=== PATIENT | female | born 1995 | race Caucasian/White ===

== ENCOUNTER 2022-10-21 19:29 | Emergency (ER) | payer OTHER, SELFPAY ==
--- NOTE | ~2022-10-21 | XR_ITS ---
EXAMINATION: XR chest 1V portable Exam Date/Time: 10/21/2022 21:18 [facility] HISTORY: syncope, NAUSEA X TODAY. recent cold symptoms Comparison: None available. RESULT: Lines, tubes, and devices: None. Lungs and pleura: Clear. Cardiomediastinal silhouette: Normal. Other: No acute osseous or upper abdominal finding. IMPRESSION: No acute cardiopulmonary process. Reviewed, dictated and finalized at location [facility]
[2022-10-21 19:52] VITALS: BP 134/97; PULSE 75; RESP 18; TEMP 36.6; O2SAT 100
--- NOTE | 2022-10-21 21:01 | ECG_ITS ---
Measurements Intervals [place] Rate: 72 P: 60 WI: 125 QRS: 65 QRSD: 102 T: 54 QT: 380 QTc: 418 Interpretive Statements SINUS RHYTHM NORMAL ECG NO PREVIOUS ECG AVAILABLE FOR COMPARISON Electronically Signed On 10-22-2022 8:28:14 [facility] DIRECTOR by Darrell Melara D.O.
--- NOTE | 2022-10-21 21:02 | ED.SYNCOPE ---
HPI - Syncope General Chief Complaint: Syncope Stated Complaint: syncope Time Seen by Provider: 10/21/22 20:08 History of Present Illness HPI narrative: Patient is a 27-year-old female presenting with syncope. Patient states that she was running errands this afternoon and was feeling okay. When she got home she had an episode of nausea, diaphoresis, lightheadedness. States that she called out for her who was able to help her sit down into a chair. States that she continued to feel nauseated but was able to lay down for a nap. When she woke up she had a headache and felt like her vision was temporarily blurry. States that she still has a headache but her vision is now normal. States that she is still nauseated. States that she has passed out before from having a UTI. She denies fevers, chest pain, palpitations, shortness of breath, abdominal pain, vomiting, leg swelling, diarrhea. States that she has had a cold lately. Related Data Allergies Allergy/AdvReac Type Severity Reaction Status Date / Time cefaclor Allergy Unknown Rash Verified 10/21/22 20:01 Review of Systems Review of Systems: All systems reviewed & are unremarkable except as noted in HPI and below Exam Narrative: GENERAL: Well-appearing, well-nourished, and in no acute distress. HEAD: Normocephalic, atraumatic. EYES: PERRLA and EOMI. ENT: Nares clear, no rhinorrhea or epistaxis. Mucous membranes moist. NECK: Supple. CHEST: Clear to auscultation. No respiratory distress. HEART: Regular rate and rhythm. No murmur heard. Normal peripheral pulses. ABDOMEN: Soft, nontender, nondistended, normal active bowel sounds. EXTREMITIES: Normal range of motion. No edema. SKIN: Warm, dry, no rash. NEURO: No focal deficits. Alert and oriented x3. PSYCH: Normal mood and affect. Course Vital Signs Vital signs: Vital Signs Temperature 97.8 F 10/21/22 19:52 Pulse Rate 75 10/21/22 19:52 Respiratory Rate 18 10/21/22 19:52 Blood Pressure 134/97 H 10/21/22 19:52 Pulse Oximetry 100 10/21/22 19:52 Oxygen Delivery Room Air 10/21/22 19:52 Temperature 97.8 F 10/21/22 19:52 Pulse Rate 78 10/21/22 23:05 Respiratory Rate 18 10/21/22 23:05 Blood Pressure 120/77 10/21/22 23:05 Pulse Oximetry 99 10/21/22 23:05 Oxygen Delivery Room Air 10/21/22 19:52 MDM - Syncope MDM Narrative Medical decision making narrative: Patient is a 27-year-old female presenting with syncope. Vitals are within normal limits. Patient is well-appearing and in no acute distress. Exam is unremarkable. EKG per my interpretation shows normal sinus rhythm, normal axis and intervals, no ST elevations or depressions. Blood work is unremarkable. On reevaluation, the patient states that she is feeling improved. UA with UTI. Patient discharged on Macrobid. Advised PCP follow-up. Appropriate return precautions given. Lab Data Result diagrams: 10/21/22 21:13 10/21/22 21:13 Labs: Lab Results 10/21/22 10/21/22 10/21/22 Range/Units 21:13 21:13 22:19 WBC 6.9 (4.5-10.0) K/mm3 RBC 4.51 (4.2-5.4) M/mm3 Hgb 13.6 (12.0-15.0) g/dL Hct 40.6 (37.0-47.0) % MCV 90.0 (80-100) fl MCH 30.2 (26-34) pg MCHC 33.5 (32-36) g/dl RDW 13.2 (11.5-14.5) % Plt Count 240 (150-375) k/mm3 MPV 11.6 H (7.4-10.4) fl Immature Gran % (Auto) 0.3 (0-0.5) % Neut % (Auto) 53.7 (45.5-73.1) % Lymph % (Auto) 29.5 (18.3-44.2) % [place] % (Auto) 9.5 H (2.6-8.5) % Eos % (Auto) 6.3 H (0-4.4) % Baso % (Auto) 0.7 (0.2-1.2) % Lymph # (Auto) 2.03 (0.9-3.2) K/mm3 [place] # (Auto) 0.7 H (0.1-0.6) K/mm3 Eos # (Auto) 0.4 H (0-0.3) K/mm3 Baso # (Auto) 0.1 (0.0-0.1) K/mm3 Abs Immat Gran (auto) 0.02 (0.00-0.031) K/mm3 Absolute Neuts (auto) 3.7 (1.3-6.7) K/mm3 Absolute Nucleated RBC 0.0 (0.0-0.012) K/mm3 Nucleated RBC % 0.0 (0.0-0.2) % Sodium 139 (137-145)
[2022-10-21] MEDS: SODIUM CHLORIDE 0.9% IV 1,000 ML 999 ML IV CONT (21:14)
[2022-10-21] MEDS: ONDANSETRON INJ 4 MG/2 ML VIAL IV PUSH (21:15)
[2022-10-21 21:18] LABS: Basophils Absolute Auto 0.1 K/mm3 (0.0-0.1); Basophils Percent Auto 0.7 % (0.2-1.2); Eosinophils Absolute Auto 0.4 K/mm3 (0-0.3); Eosinophils Percent Auto 6.3 % (0-4.4); Hematocrit 40.6 % (37.0-47.0); Hemoglobin 13.6 g/dL (12.0-15.0); Immature Granulocyte Absolute 0.02 K/mm3 (0.00-0.031); Immature Granulocyte Percent A 0.3 % (0-0.5); Lymphocytes Absolute Auto 2.03 K/mm3 (0.9-3.2); Lymphocytes Percent Auto 29.5 % (18.3-44.2); Mean Corpuscular HGB Conc 33.5 g/dl (32-36); Mean Corpuscular Hemoglobin 30.2 pg (26-34); Mean Platelet Volume 11.6 fl (7.4-10.4); Monocytes Absolute Auto 0.7 K/mm3 (0.1-0.6); Monocytes Percent Auto 9.5 % (2.6-8.5); Neutrophils Absolute Auto 3.7 K/mm3 (1.3-6.7); Neutrophils Percent Auto 53.7 % (45.5-73.1); Platelet Count Result 240 k/mm3 (150-375); Red Blood Count 4.51 M/mm3 (4.2-5.4); Red Cell Distribution Width 13.2 % (11.5-14.5); White Blood Count 6.9 K/mm3 (4.5-10.0)
[2022-10-21 21:36] LABS: Alanine Aminotransferase 15 U/L (6-35); Albumin Level 4.5 g/dL (3.5-5.1); Alkaline Phosphatase 92 U/L (38-126); Anion Gap 10 mmol/L (8-16); Aspartate Amino Transferase 22 U/L (14-36); Bilirubin,Total 0.4 mg/dL (0.2-1.3); Blood Urea Nitrogen 18 mg/dL (7-17); Calcium 9.2 mg/dL (8.4-10.2); Carbon Dioxide 24 mmol/L (22-30); Chloride 105 mmol/L (98-107); Estimated CRCL calculation 84 ml/min; Estimated Glomerular Filt Rate > 60; Glucose 95 mg/dL (65-110); Magnesium 2.1 mg/dL (1.6-2.3); Sodium 139 mmol/L (137-145)
[2022-10-21 22:27] LABS: Appearance Urine Cloudy (Clear); Bilirubin Urine Negative (Negative); Blood Urine 2+ (Negative); Color Urine Yellow (Yellow); Glucose Urine UA Negative (Negative); Ketones Urine Negative (Negative); Leukocyte Esterase Ur Trace LEU/UL (Negative); Nitrate Urine Negative (Negative); Protein Urine Negative (Negative); Specific Grav Ur 1.025 (1.001-1.035)
[2022-10-21 22:33] LABS: Pregnancy On Board Control Positive; Urine Pregnancy Test Negative
[2022-10-21 22:34] LABS: Mucus Urine Rare /lpf; RBC Urine >75 /hpf (0-2); Squamous Epithelial Cell Urine Few /hpf (Few)
[2022-10-21 22:37] LABS: Add Urine Microscopic? YES
[2022-10-21 23:05] VITALS: BP 120/77; PULSE 78; RESP 18; O2SAT 99
== END 2022-10-21 23:06 | disposition home or self-care (01) ==
PROVIDERS: Emergency Provider Emergency Medicine
DX: R55 Syncope and collapse (principal); N39.0 Urinary tract infection, site not specified; R51.9 Headache, unspecified
CPT/HCPCS: 36415; 71045; 80053; 81001; 81025; 83735; 85025; 87077; 87086; 87088; 93005; 96365; 96375; 99284; J0131; J2405; J7030